=== PATIENT | male | born 1980 | race Caucasian/White ===

== ENCOUNTER 2017-09-22 11:17 | Emergency (ER) | payer BC ==
[~2017-09-22] VITALS: Ht 172.7 cm; Wt 149.7 kg
[2017-09-22] MEDS ORDERED: NAPROSYN500 MG PO (11:45)
[2017-09-22] MEDS ORDERED: KEFLEX500 M1 PO (11:45)
== END 2017-09-22 15:10 | disposition home or self-care (01) ==
LOC: ED 11:17
DX: S61.011A Laceration without foreign body of right thumb without damage to nail, initial encounter (principal); R03.0 Elevated blood-pressure reading, without diagnosis of hypertension; F17.200 Nicotine dependence, unspecified, uncomplicated; W26.0XXA Contact with knife, initial encounter; Y93.89 Activity, other specified; Y92.89 Other specified places as the place of occurrence of the external cause; Y99.8 Other external cause status